=== PATIENT | female | born 1965 | race Caucasian/White ===

== ENCOUNTER 2019-12-19 12:54 | Emergency (ER) | payer MEDICAID, SELFPAY | END 2019-12-19 14:55 | disposition home or self-care (01) | LOC: ER 12-28 15:16 | PROVIDERS: Emergency Provider Family Medicine; Family Provider Internal Medicine; PCP Internal Medicine | DX: Z76.89 Persons encountering health services in other specified circumstances (principal) ==

== ENCOUNTER 2019-12-19 12:54 | Emergency (ER) | payer MEDICAID, SELFPAY ==
[2019-12-19 13:09] VITALS: BP 151/73; PULSE 73; RESP 18; TEMP 36.6; O2SAT 95; BMI 63.2
--- NOTE | 2019-12-19 13:34 | ED_ITS ---
Entered by Tena Borrego, acting as scribe for Dec 19, 2019 12:54 HPI - Extremity Problem General: Chief complaint: Extremity Injury, Lower Stated complaint: big toe pain Time Seen by Provider: 12/19/19 13:34 Source: patient Mode of arrival: ambulatory Limitations: no limitations History of Present Illness: HPI Narrative: 54 yo female presents with R ten derness. pt states this started 2 days ago. pt states this is worsened with wearing shoes or walking. pt denies any other symptoms at this time. MD Complaint: extremity pain (R foot) Onset (ago): day(s) (2 days ago) Pain Consistency: constant Location: right Quality: sharp Radiation: none Relieving factors: nothing Exacerbating factors: walking Associated symptoms: Reports no associated symptoms; Deny chest pain, fever(s) or rash Review of Systems 2 General: Reports: 10 or more systems reviewed and unremarkable except in HPI and below Const: Denies: fever, chills, body aches, fatigue, malaise or night sweats Eyes: Denies: change in vision or blurry vision ENMT: Denies: throat pain, oral sores/lesions, dental pain, nasal discharge or nasal congestion Card: Denies: chest pain, palpitations, irregular heart rhythm, edema, syncope, shortness of breath on exertion, shortness of breath when lying down or leg pain with exertion Resp: Denies: shortness of breath, productive cough, non-productive cough or wheezing GI: Denies: abdominal pain, nausea, vomiting, vomiting blood, coffee grounds in vomit, difficulty swallowing, heartburn/indigestion, diarrhea, constipation, cramping, blood in stool or black tarry stool : Denies: flank pain, painful urination, urinary frequency, urinary urgency, urinary incontinence or blood in urine Musc: Denies: neck pain, back pain, extremity pain, extremity swelling, joint pain or joint swelling Skin/Breast: Denies: rash, itching or redness Neuro: Denies: headache, numbness in extremities, weakness in extremities, changes in sensation, lack of coordination, difficulty walking, frequent falls, dizziness, vertigo or confusion Psych: Denies: anxiety, depression, loss of interest, visual hallucinations, auditory hallucinations, suicidal ideation or homicidal ideation Endo: Denies: excessive urination, excessive thirst, tired all the time or cold intolerance Bandar/Lymph: Denies: easy bruising, easy bleeding, petechiae, enlarged lymph nodes or tender lymph nodes PFSH ED PFSH: Social History Smoking and tobacco status: never smoked Physical Exam Const: COMMON NORMALS: average body habitus, oriented x3 and alert GENERAL APPEARANCE: cooperative, comfortable, well kempt and well developed NUTRITIONAL APPEARANCE: obese ORIENTATION/CONSCIOUSNESS: Yes awake, Yes oriented to person and Yes oriented to place HENMT: COMMON NORMALS: normocephalic and head/scalp atraumatic HEAD & SCAL P: normocephalic and atraumatic Lymph: LYMPHATIC: no lymphadenopathy noted Resp: COMMON NORMALS: normal respiratory effort, no retractions, no use of accessory muscles and clear to auscultation bilaterally AUSCULTATION: clear to auscultation bilaterally Cardio: COMMON NORMALS: regular rate and regular rhythm RATE: regular rate RHYTHM: regular rhythm HEART SOUNDS: no murmurs Extremity: RIGHT LOWER EXTREMITY: Yes foot & digits (Reddened erythematous area over the medial aspect of the right first MP joint semi-fluctuant no drainage no pointing) Neuro: COMMON NORMALS: oriented x3 SENSORIUM/ORIENTATION: Yes alert, Yes oriented to person and Yes oriented to place Psych: APPEARANCE: Yes well kempt Skin: COMMON NORMALS: no rashes or lesions noted and skin turgor normal GENERAL SKIN EXAM: no rashes or lesions noted and turgor normal Course ED course: Mildly elevated CRP, no evidence of bony involvement on the x-ray. We will go ahead and start her on Bactrim and hydrocodone for pain follow-up with podiatry Vital Signs: Vital signs: Vital Signs Temperature 97.9 F 12/19/19 13:09 Pulse Rate 69 12/19/19 14:54 Respiratory Rate 16 12/19/19 14:54 Blood Pressure 123/89 12/19/19 14:54 Pulse Oximetry 100 12/19/19 14:54 MDM - Extremity (Nontraumatic) Lab Data: Labs: Lab Results 12/19/19 12/19/19 Range/Units 13:47 13:47 WBC 6.7 (4.0-10.0) 10^3/ uL RBC 4.72 (4.1-5.3) 10^6/u L Hgb 10.7 L (11.5-15.3) g/dL Hct 37.5 (37.0-47.0) % MCV 79.4 L (81-99) fL MCH 22.7 L (28.0-34.0) pg MCHC 28.5 L (30.0-36.0) g/dL RDW 17.1 H (12.1-15.1) % Plt Count 247 (130-400) 10^3/c mm MPV 10.9 H (7.4-10.4) fL Neut % (Auto) 70.3 % Lymph % (Auto) 22.0 % Laporte % (Auto) 4.9 % Eos % (Auto) 2.1 % Baso % (Auto) 0.6 % Neut # (Auto) 4.7 (1.8-7.7) 10^3/u L Lymph # (Auto) 1.5 (0.8-4.8) 10^3/u L Laporte # (Auto) 0.3 (0.2-0.9) 10^3/u L Eos # (Auto) 0.1 (0.0-0.8) 10^3/u L Baso # (Auto) 0.0 (0.0-0.1) 10^3/u L Nucleated RBC % (a uto) 0 % Nucleated RBCs # 0.0 /100WBC C-Reactive Protein 9.3 H (0.0-4.9) mg/L Discharge Plan Discharge Patient Disposition: Home, Self-Care Clinical Impression: Cellulitis Condition: Stable Prescriptions: New Bactrim DS 800-160 mg tablet 1 tab PO DAILY 7 Days Qty: 14 RF: 0 Donnelly 5-325 mg tablet 1 tab PO Q6H PRN (Reason: pain) Qty: 15 RF: 0 No Action venlafaxine 75 mg tablet 75 mg PO DAILY RF: 0 cetirizine 10 mg tablet 10 mg PO DAILY RF: 0 liothyronine 5 mcg tablet 5 mcg PO BID RF: 0 aspirin 81 mg tablet,delayed release (DR/EC) 81 mg PO DAILY RF: 0 lisinopril 10 mg tablet 10 mg PO DAILY RF: 0 Synthroid 150 mcg tablet 150 mcg PO DAILY RF: 0 metoprolol tartrate 50 mg tablet 50 mg PO DAILY RF: 0 furosemide 20 mg tablet 20 mg PO DAILY RF: 0 fluticasone propionate 50 mcg/actuation spray,suspension 2 spray INTRANASAL DAILY PRN (Reason: Allergy Symptoms) RF: 0 warfarin See Rx Instructions .ROUTE .COMPLEX RF: 0 Xanax 0.25 mg Tablet 0.25 mg PO PRN RF: 0 Zantac 150 mg Tablet 150 mg PO PRN RF: 0 metformin 500 mg Tablet Extended Release 24 Hr 500 mg PO DAILY RF: 0 Discharge Orders: Discharge Order (Routine); Ordered 12/19/19 Ordered By: Jordi Chambers Referrals: Lesa Christie MD [Primary Care Provider] - Discharge Date/Time: 12/19/19 14:55 Coding Level of Care Code ED Crystalizer for Chg Fwd Exam Comprehensive The documentation recorded by the Elmo de la cruz Bridget Annette, accurately reflects the service I personally performed and the decisions made by Reyes lindsay Curtis L, DO Dec 19, 2019 12:54
--- NOTE | 2019-12-19 13:40 | XR_ITS ---
WS: [id number] XR toe RT min 2V [id number] REASON FOR EXAM: R great toe FINDINGS: Soft tissue swelling of the great toe is noted. There is no definite fractures seen and no evidence of destructive changes. XR/XR toe RT min 2V [id number] IMPRESSION: Soft tissue swelling but no destructive changes identified.
[2019-12-19 13:53] LABS: Basophils % 0.6 %; Eosinophils # 0.1 10^3/uL (0.0-0.8); Eosinophils % 2.1 %; Hematocrit 37.5 % (37.0-47.0); Hemoglobin 10.7 g/dL (11.5-15.3); Lymphocytes # 1.5 10^3/uL (0.8-4.8); Mean Corpuscular HGB Conc 28.5 g/dL (30.0-36.0); Mean Corpuscular Hemoglobin 22.7 pg (28.0-34.0); Mean Corpuscular Volume 79.4 fL (81-99); Mean Platelet Volume 10.9 fL (7.4-10.4); Monocytes # 0.3 10^3/uL (0.2-0.9); Monocytes % 4.9 %; Neutrophils # 4.7 10^3/uL (1.8-7.7); Neutrophils % 70.3 %; Nucleated Red Blood Cells % 0 %; Platelet Count 247 10^3/cmm (130-400); Red Blood Count 4.72 10^6/uL (4.1-5.3); Red Cell Distribution Width 17.1 % (12.1-15.1); White Blood Count 6.7 10^3/uL (4.0-10.0)
--- NOTE | 2019-12-19 13:59 | PC.NURSE ---
X-ray at bedside
[2019-12-19 14:29] VITALS: BP 123/89; PULSE 69; RESP 18; O2SAT 99
--- NOTE | 2019-12-19 14:33 | PC.NURSE ---
Pt states her right great toe was sore 2 days ago, worsening until this morning where it became unbearable to bear weight. Pt states she wore a bad pair of shoes yesterday that probably aggravated it . Pt denies injury to foot. Redness and pain to right great toe distal phalanx. Pt has full ROM and cap refill <3 sec.
[2019-12-19 14:34] LABS: C Reactive Protein 9.3 mg/L (0.0-4.9)
[2019-12-19 14:54] VITALS: BP 123/89; PULSE 69; RESP 16; O2SAT 100
--- NOTE | 2019-12-21 13:33 | DCPLANNER ---
food and beverage assistant manager had message to schedule a follow up appointment for patient with podiatry. food and beverage assistant manager called the ortho clinic, spoke with Pat, gave clinic patients information. food and beverage assistant manager was told that patients information would be printed and reviewed. Clinic will call watch case polisher and patient with appointment information.
--- NOTE | 2019-12-23 11:01 | DCPLANNER ---
Patient has an appointment scheduled for January at 2:[address] Rowland. Patient is aware of appointment.
--- NOTE | 2020-01-14 12:39 | DCPLANNER ---
Patient did attend appointment scheduled for 01.13.20 with ortho.
== END 2019-12-19 14:55 | disposition home or self-care (01) ==
PROVIDERS: Emergency Provider Family Medicine; Family Provider Internal Medicine; PCP Internal Medicine
DX: L03.115 Cellulitis of right lower limb (principal)
CPT/HCPCS: 36415; 73660; 85025; 86140; 99281; 99283

== ENCOUNTER 2020-09-05 14:44 | Outpatient (CLI) | payer MEDICAID, SELFPAY ==
--- NOTE | 2020-09-05 14:48 | US_ITS ---
WS: [id number] ULTRASOUND RENAL TECHNIQUE: Ultrasound examination of both kidneys. CLINICAL INFORMATION: CYSTIC LUNG COMPARISON: None. FINDINGS: Technically difficult examination due to body habitus RIGHT: Right kidney is normal in size and appearance. Echogenicity: Normal. Cortical thickness: 1.5 cm; Normal. Hydronephrosis: None. Perinephric fluid: None. Right kidney measures: 12.8 cm x 5.3 cm x 4.7 cm. LEFT: Left kidney is normal in size and appearance. Echogenicity: Normal. Cortical thickness: 1.6 cm; Normal. Hydronephrosis: None. Perinephric fluid: None. Left kidney measures: 11.0 cm x 4.8 cm x 6.7 cm. Normal visualized aorta. Bladder is decompressed. Patient recently voided. US/US renal BI* [id number] IMPRESSION: Normal renal ultrasound
== END 2020-09-05 14:45 | disposition home or self-care (01) ==
PROVIDERS: PCP Internal Medicine; Visit Provider Internal Medicine
DX: J98.4 Other disorders of lung (principal)
CPT/HCPCS: 76770

== ENCOUNTER → 2020-12-08 11:40 | Outpatient (BNVA) | payer MEDICAID, SELFPAY | PROVIDERS: PCP Internal Medicine; Visit Provider Obstetrics & Gynecology | DX: N95.0 Postmenopausal bleeding (principal); E66.01 Morbid (severe) obesity due to excess calories; Z68.44 Body mass index [BMI] 60.0-69.9, adult | CPT/HCPCS: 83001; 84146; 84443; 85610; 85730 ==

== ENCOUNTER → 2020-12-19 14:44 | Outpatient (BNVA) | payer MEDICAID, SELFPAY | PROVIDERS: PCP Internal Medicine; Visit Provider Obstetrics & Gynecology | DX: N95.0 Postmenopausal bleeding (principal); D25.1 Intramural leiomyoma of uterus; N85.2 Hypertrophy of uterus | CPT/HCPCS: 76830 ==

== ENCOUNTER → 2021-01-11 13:42 | Outpatient (BNVA) | payer MEDICAID, SELFPAY | PROVIDERS: PCP Internal Medicine; Visit Provider Obstetrics & Gynecology | DX: N95.0 Postmenopausal bleeding (principal) | CPT/HCPCS: 81025; 88305 ==

== ENCOUNTER 2021-12-12 14:23 | Outpatient (CLI) | payer MEDICAID, SELFPAY ==
--- NOTE | 2021-12-12 14:36 | US_ITS ---
WS: [id number] RENAL ULTRASOUND HISTORY: CYSTIC BULLOUS DZ OF LUNG COMPARISON: 09/05/2020 TECHNIQUE: 2-D and color Doppler imaging of the kidney submitted. Right kidney: 11.1 cm x 5.9 cm x 5.1 cm. Normal echogenicity with no hydronephrosis or mass. Left kidney: 11.5 cm x 6.8 cm x 4.5 cm. Normal echogenicity with no hydronephrosis or mass. Aorta: Normal. Urinary Bladder: Normal distention. US/US renal BI* [id number] IMPRESSION: Normal renal ultrasound.
[2021-12-13 07:57] LABS: PROTEIN, TOTAL 7.5 g/dL (6.1-8.1)
[2021-12-14 08:52] LABS: ALBUMIN 3.9 g/dL (3.8-4.8); ALPHA 1 GLOBULIN 0.4 g/dL (0.2-0.3); ALPHA 2 GLOBULIN 0.8 g/dL (0.5-0.9); BETA 1 GLOBULIN 0.6 g/dL (0.4-0.6); BETA 2 GLOBULIN 0.7 g/dL (0.2-0.5); GAMMA GLOBULIN 1.3 g/dL (0.8-1.7)
== END 2021-12-12 14:24 | disposition home or self-care (01) ==
PROVIDERS: PCP Internal Medicine; Visit Provider Internal Medicine Pulmonary Disease
DX: J98.4 Other disorders of lung (principal)
CPT/HCPCS: 36415; 76770; 84155; 84165

== ENCOUNTER 2022-07-07 22:24 | Emergency (ER) | payer MEDICAID, SELFPAY ==
[2022-07-07 22:45] VITALS: BP 179/96; PULSE 74; RESP 22; TEMP 37.7; O2SAT 93; BMI 61.5
--- NOTE | 2022-07-07 22:56 | XRR_ITS ---
PROCEDURE INFORMATION: Exam: XR Chest Exam date and time: 07/07/2022 11:14 PM Age: 56 years old Clinical indication: Cough and shortness of breath; Additional info: SOB cough TECHNIQUE: Imaging protocol: Radiologic exam of the chest. Views: 1 view. COMPARISON: CR Chest 2 views* [id number] 11/01/2019 12:43 PM FINDINGS: Lungs: Right hilar to lower lobe atelectasis versus infiltrate. Pleural spaces: Unremarkable. No pleural effusion. No pneumothorax. Heart/Mediastinum: Unremarkable. No cardiomegaly. Bones/joints: Unremarkable. XR/XR chest 1V portable [id number] IMPRESSION: Right hilar to lower lobe atelectasis versus infiltrate.
[2022-07-07 22:59] VITALS: O2SAT 95
[2022-07-07 23:19] VITALS: PULSE 78; RESP 17; O2SAT 94
[2022-07-08 01:00] VITALS: PULSE 88; RESP 17; O2SAT 95
[2022-07-08 01:11] VITALS: PULSE 88; RESP 17; O2SAT 95
[2022-07-08 01:24] LABS: SARS Covid-2 Antigen Positive (Negative)
--- NOTE | 2022-07-08 04:36 | W.ED.COVID ---
HPI - COVID General: Chief Complaint: COVID symptoms Stated Complaint: n/v Time Seen by Provider: 07/07/22 22:56 Source: patient Triage information: Has fever, cough or shortness of breath. History of Present Illness: 56-year-old female who complains of multiple symptoms. These include fever cough shortness of breath, and diarrhea with vomiting. She took a home COVID test and states that she believes it was positive, but she does not know if she read it right . MD complaint: known COVID positive Prior covid testing: yes, results known COVID 19 common symptoms: positive fever(s), chills, cough, non-productive cough, dyspnea, nasal congestion, nausea, vomiting and diarrhea COVID 19 other sytmptoms: negative chest pressure, chest pain or requiring oxygen Onset (ago): day(s) Severity: moderate Pertinent comorbid conditions: diabetes and hypertension COVID Results: SARS-CoV-2 Antigen (Rapid) Positive (Negative) H 07/08/22 00:04 Review of Systems Const: Reports: fever(s) and chills ENMT: Reports: nasal congestion Card: Denies: chest pain Resp: Reports: dyspnea and non-productive cough GI: Reports: nausea, vomiting and diarrhea PFSH ED PFSH: Medical History Accelerated essential hypertension Diabetes Hx of blood clots Hypothyroidism Lung disease Postmenopausal bleeding Presence of IVC filter 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 Performed by Dr John at [facility] in [place], [place] Surgical History H/O superior vena cava filter placement 11/30/2013- Dx: Respiratory failure, Pulmonary embolism. Performed by Dr John at [facility] in [place], [place] History of weight loss surgery Gastric Sleeve Hx of cholecystectomy Status post hysteroscopic polypectomy 08/23/19- per Dr. Nair at [facility] EMB: small fragment of proliferative type endometrium and adjacent benign endocervical type mucosa, no malignancy, complex hyperplasia, chronic endometritis, or dysplasia is identified, step sections examined Family History Father Hypertension Brother Hypertension Mother Thyroid condition Grandmother Stroke paternal Sister Diabetes Hypertension Son Thyroid condition Grandfather Heart disease paternal and maternal Denies family history of Colon cancer Ovarian cancer Clotting disorder Hyperlipidemia Breast cancer Anesthesia complication Bleeding disorder Uterine cancer Social History Smoking and tobacco status: never smoked Alcohol intake: never Current occupational status: disabled Physical Exam Const: COMMON NORMALS: no acute distress GENERAL APPEARANCE: cooperative; not ill appearing and not frail appearing HENMT: COMMON NORMALS: normocephalic, atraumatic and Normal external nose present HEAD & SCALP: normocephalic and atraumatic FACE & SINUS: normal facial exam and face symmetric NOSE: Normal external nose present Eye: COMMON NORMALS: Equal, round and reactive pupils present and EOMs intact bilaterally PUPIL: Yes Equal, round and reactive pupils present Neck/C-Spine: GENERAL: Yes trachea midline Chest: CHEST: Yes Symmetrical chest wall rise Resp: COMMON NORMALS: normal respiratory effort, No retractions, No use of accessory muscles and clear to auscultation bilaterally AUSCULTATION: clear to auscultation bilaterally Cardio: COMMON NORMALS: regular rate and regular rhythm RATE: regular rate RHYTHM: regular rhythm GI: COMMON NORMALS: Normal to inspection, nondistended, normoactive bowel sounds present Extremity: COMMON NORMALS: no pedal edema Neuro: PETRA COMA SCALE: document GCS findings Petra coma scale eye opening: Spontaneous Petra coma scale verbal response: Orientated [place] coma scale motor response: Obey commands Petra coma scale total score: 15 SENSORY EXAM: Yes extremities (intact) Psych: COMMON NORMALS: speech normal SPEECH: Yes normal speech Skin: COMMON NORMALS: no rashes or lesions noted GENERAL SKIN EXAM: no rashes or lesions noted Course Vital Signs: Vital signs: Vital Signs Temperature 99.9 F H 07/07/22 22:45 Pulse Rate 88 07/08/22 01:11 Respiratory Rate 17 07/08/22 01:11 Blood Pressure 179/96 07/07/22 22:45 Pulse Oximetry 95 07/08/22 01:11 Oxygen Delivery Me thod 07/07/22 23:19 MDM - COVID Medical Decision Making Rapid is confirmed positive here. Chest x-ray shows some atelectasis versus slight infiltrate. Given her comorbid conditions, she will be placed on antivirals. She knows to return for any worsening symptoms. Lab Data Radiology Impressions Chest X-Ray 07/07/22 22:56 IMPRESSION: Right hilar to lower lobe atelectasis versus infiltrate. Laboratory Results SARS-CoV-2 Ag (Rapid) Positive (Negative) H 07/08/22 00:04 SARS-CoV-2 Antigen (Rapid) Positive (Negative) H 07/08/22 00:04 Discharge Plan Discharge Patient Disposition: Home Clinical Impression: COVID-19 Condition: Stable Prescriptions: New Paxlovid (EUA) 150 mg x 2- 100 mg tablet See Rx Instructions .ROUTE .COMPLEX Qty: 30 0RF Rx Instructions: take TWO 150 mg tablets of nirmatrelvir with ONE 100 mg tablet of ritonavir twice daily for 5 days No Action atorvastatin 10 mg tablet 10 mg PO DAILY Victoza 3-Chaz 0.6 mg/0.1 mL (18 mg/3 mL) pen injector 1.8 mg SUBCUT Q24H azithromycin [Zithromax Z-Chaz] 250 mg tablet See Rx Instructions PO .COMPLEX Qty: 6 0RF Rx Instructions: For 250 mg dose pack: take 500 mg today (day 1), then 250 mg for 4 days (days 2-5) PO venlafaxine 75 mg tablet 75 mg PO DAILY cetirizine 10 mg tablet 10 mg PO DAILY liothyronine 5 mcg tablet 5 mcg PO BID aspirin 81 mg tablet,delayed release (DR/EC) 81 mg PO DAILY lisinopril 10 mg tablet 10 mg PO DAILY Synthroid 150 mcg tablet 150 mcg PO DAILY metoprolol tartrate 50 mg tablet 50 mg PO DAILY furosemide 20 mg tablet 20 mg PO DAILY fluticasone propionate 50 mcg/actuation spray,suspension 2 spray INTRANASAL DAILY PRN (Reason: Allergy Symptoms) warfarin See Rx Instructions .ROUTE .COMPLEX Rx Instructions: 6-1/2 mg po daily Xanax 0.25 mg Tablet 0.25 mg PO PRN Zantac 150 mg Tablet 150 mg PO PRN Discharge Orders: Discharge ED (Routine); Ordered 07/08/22 Ordered By: Neil Cason Referrals: Lesa Christie MD [Primary Care Provider] - 1-3 days Discharge Diet: Advance as tolerated Discharge Activity: Increase activity as tolerated Patient Instructions: COVID-19 (Coronavirus Disease 2019) (ED) Activity Restrictions/Additional Instructions: Medications as instructed. Return for worsening shortness of breath despite treatment, vomiting liquids or medications, any other concerning symptoms. Stop your atorvastatin while on the antiviral medication. You should have your INR checked 2 days after starting the drug. Coding Level of Care Code ED Matrix Plater for Luis F Britt
== END 2022-07-08 01:12 | disposition home or self-care (01) ==
PROVIDERS: Emergency Provider Emergency Medicine; PCP Internal Medicine
DX: U07.1 COVID-19 (principal); Z79.82 Long term (current) use of aspirin; Z79.01 Long term (current) use of anticoagulants; I10 Essential (primary) hypertension; E11.9 Type 2 diabetes mellitus without complications
CPT/HCPCS: 71045; 87426; 99283

== ENCOUNTER 2022-11-20 09:47 | Outpatient (CLI) | payer MEDICAID, SELFPAY ==
--- NOTE | 2022-11-20 09:57 | US_ITS ---
WS: [id number] RENAL ULTRASOUND HISTORY: CYSTIC-BULLOUS DZ OF LUNG COMPARISON: 12/12/2021 TECHNIQUE: 2-D and color Doppler imaging of the kidney submitted. Right kidney: 11.6 cm x 5.0 cm x 4.8 cm. Normal echogenicity with no hydronephrosis or mass. Left kidney: 11.9 cm x 4.5 cm x 5.1 cm. Normal echogenicity with no hydronephrosis or mass. Aorta: Normal. Urinary Bladder: Normal distention. US/US renal BI* [id number] IMPRESSION: Normal renal ultrasound. Similar size and appearance of the kidneys as compared to 12/12/2021.
== END 2022-11-20 09:48 | disposition home or self-care (01) ==
LOC: RAD 09:50
PROVIDERS: PCP Internal Medicine; Visit Provider Internal Medicine Pulmonary Disease
DX: J84.9 Interstitial pulmonary disease, unspecified (principal)
CPT/HCPCS: 76770

== ENCOUNTER 2023-10-03 13:27 | Emergency (ER) | payer MEDICAID, SELFPAY ==
[2023-10-03 13:41] VITALS: BP 157/84; PULSE 57; RESP 17; TEMP 36.6; O2SAT 95; BMI 59.9
--- NOTE | 2023-10-03 13:56 | W.ED.ANIMALB ---
HPI - Animal Bite General: Chief Complaint: Animal Bite Stated Complaint: animal bite/rabies shot Time Seen by Provider: 10/03/23 13:52 Source: patient Mode of arrival: ambulatory Limitations: no limitations History of Present Illness: 57-year-old female presents to the ER today for follow-up on cat bite. Patient was bit by a cat on Friday on her left middle finger. Patient reports she was seen at that time and started on Augmentin. She picked up the medication Friday and has taken about 4 doses of it. She reports the throbbing has subsided but there is still redness and tenderness to light palpation. She is also been soaking in Epsom salts. They did give her a tetanus shot at the time also. They did not do rabies vaccines however the health department has called her and told her she should follow-up to discuss it. Patient reports this cat was a stray cat but was not acting odd when it bit her. She reports she had picked it up and was trying to rub his eyes and clean his eyes when it better so the attack was not unprovoked. She reports she did not capture the cat however has seen it since and it is acting normally. 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 Performed by Dr John at [facility] in [place], [place]. Postmenopausal bleeding Diabetes Lung disease Hypothyroidism Accelerated essential hypertension Hx of blood clots Presence of IVC filter Surgical History H/O superior vena cava filter placement 11/30/2013- Dx: Respiratory failure, Pulmonary embolism. Performed by Dr John at [facility] in [place], [place]. Status post hysteroscopic polypectomy 08/23/19- per Dr. Nair at [facility] EMB: small fragment of proliferative type endometrium and adjacent benign endocervical type mucosa, no malignancy, complex hyperplasia, chronic endometritis, or dysplasia is identified, step sections examined Hx of cholecystectomy History of weight loss surgery Gastric Sleeve Family History Father Hypertension Brother Hypertension Mother Thyroid disease Grandmother Stroke paternal Sister Diabetes Hypertension Son Thyroid disease Grandfather Heart disease paternal and maternal Denies family history of Colon cancer Ovarian cancer Clotting disorder Hyperlipidemia Breast cancer Anesthesia complication Bleeding disorder Uterine cancer Social History Smoking and tobacco/nicotine status: never used tobacco/nicotine Alcohol intake: never Substance/Drug Use: never Current occupational status: disabled Physical Exam Const: COMMON NORMALS: no acute distress, average body habitus, patient oriented x3, no limitations, healthy appearing, alert and well nourished Extremity: NARRATIVE EXTREMITY EXAM: mild swelling and tenderness with movement of the L middle finger Neuro: COMMON NORMALS: patient oriented x3 SENSORIUM/ORIENTATION: Yes alert Skin: NARRATIVE SKIN EXAM: mild/mod erythema of the distal tip of the L middle finger. Scabbed puncture wound to palmar surface of the distal tip. No active drainage and per patient redness has improved. Course ED course: Pt presents to the ER for a f/u on cat bite that occurred on Friday night. Pt started Augmentin on Friday and does report improvement. She received a Tdap at that time. She has been soaking it in epsom salts. She was told to discuss rabies vaccines. Pt does not feel this cat was rabid despite it being a stray. This was not an unprovoked attack. She did not capture the cat but has seen it since and it has been acting normally. Vital Signs: Vital signs: Vital Signs Temperature 97.8 F 10/03/23 13:41 Pulse Rate 57 L 10/03/23 13:41 Respiratory Rate 17 10/03/23 13:41 Blood Pressure 157/84 10/03/23 13:41 Pulse Oximetry 95 10/03/23 13:41 Oxygen Delivery Me thod Room Air 10/03/23 13:41 MDM - Animal Bite Medical Decision Making Pt has improved and has only been on the antibiotics for less than 24 hours. Continue antibiotics and soaking in epsom salts. Discussed with patient that I do not recommend the rabies vaccines at this time. She is not at a high risk given this specific situation. She would like to also hold on the vaccines at this time. If anything changes she will follow up. She has an appt with her physician first of next week. Return to the ER with any new or worsening symptoms. No radiology studies performed this visit Critical Care Time Critical Care Time: Critical Care Time: No Discharge Plan Discharge Patient Disposition: Home Clinical Impression: Cat bite Qualifiers: Encounter type: subsequent encounter Qualified Code(s): W55.01XD - Bitten by cat, subsequent encounter Condition: Stable Prescriptions: No Action atorvastatin 10 mg tablet 10 mg PO DAILY Victoza 3-Cahz 0.6 mg/0.1 mL (18 mg/3 mL) pen injector 1.8 mg SUBCUT Q24H azithromycin [Zithromax Z-Chaz] 250 mg tablet See Rx Instructions PO .COMPLEX Qty: 6 0RF Rx Instructions: For 250 mg dose pack: take 500 mg today (day 1), then 250 mg for 4 days (days 2-5) PO venlafaxine 75 mg tablet 75 mg PO DAILY cetirizine 10 mg tablet 10 mg PO DAILY liothyronine 5 mcg tablet 5 mcg PO BID aspirin 81 mg tablet,delayed release (DR/EC) 81 mg PO DAILY lisinopril 10 mg tablet 10 mg PO DAILY Synthroid 150 mcg tablet 150 mcg PO DAILY metoprolol tartrate 50 mg tablet 50 mg PO DAILY furosemide 20 mg tablet 20 mg PO DAILY fluticasone propionate 50 mcg/actuation spray,suspension 2 spray INTRANASAL DAILY PRN (Reason: Allergy Symptoms) warfarin See Rx Instructions .ROUTE .COMPLEX Rx Instructions: 6-1/2 mg po daily Xanax 0.25 mg Tablet 0.25 mg PO PRN Zantac 150 mg Tablet 150 mg PO PRN Paxlovid 150 mg x 2- 100 mg tablet See Rx Instructions .ROUTE .COMPLEX Qty: 30 0RF Rx Instructions: take TWO 150 mg tablets of nirmatrelvir with ONE 100 mg tablet of ritonavir twice daily for 5 days Discharge Orders: Discharge ED (Routine); Ordered 10/03/23 Ordered By: Milagros Roach Referrals: Lesa Christie MD [Primary Care Provider] - Discharge Diet: Usual diet Discharge Activity: Increase activity as tolerated Patient Instructions: Opioid Safety, Pain Management Activity Restrictions/Additional Instructions: Finish Augmentin. Continue Epsom salt soaks. Follow-up with PCP as scheduled visit next week. Return to the ER with new or worsening symptoms. Coding Level of Care Code ED Legal Writing Professor for Luis F Britt
[2023-10-03 14:25] VITALS: BP 127/72; PULSE 77; RESP 18; O2SAT 93
== END 2023-10-03 14:29 | disposition home or self-care (01) ==
PROVIDERS: Emergency Provider Physician Assistant; PCP Internal Medicine
DX: S61.253A Open bite of left middle finger without damage to nail, initial encounter (principal); W55.01XA Bitten by cat, initial encounter; Z79.82 Long term (current) use of aspirin; Z79.01 Long term (current) use of anticoagulants; E11.9 Type 2 diabetes mellitus without complications; I10 Essential (primary) hypertension
CPT/HCPCS: 99282

== ENCOUNTER 2024-02-29 07:03 | Emergency (ER) | payer MEDICAID, SELFPAY ==
[2024-02-29 07:14] VITALS: BP 185/95; PULSE 58; TEMP 36.7; O2SAT 95; BMI 60.0
--- NOTE | 2024-02-29 07:24 | ED_ITS ---
HPI - Ear Problem General: Chief complaint: Ear Stated complaint: rt ear pain Time Seen by Provider: 02/29/24 07:10 Source: patient Mode of arrival: ambulatory Limitations: no limitations History of Present Illness: 58-year-old female states she been havin g right ear pain over the last 2 days. States been a throbbing pain she also felt like she had some sinus pressure as well. She denies any fevers denies any drainage. She rates the pain a 6 out of 10 currently denies any hearing issues. 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 Performed by Dr John at [facility] in [place], [place]. Postmenopausal bleeding Diabetes Lung disease Hypothyroidism Accelerated essential hypertension Hx of blood clots Presence of IVC filter Surgical History H/O superior vena cava filter placement 11/30/2013- Dx: Respiratory failure, Pulmonary embolism. Performed by Dr John at [facility] in [place], [place]. Status post hysteroscopic polypectomy 08/23/19- per Dr. Nair at [facility] EMB: small fragment of proliferative type endometrium and adjacent benign endocervical type mucosa, no malignancy, complex hyperplasia, chronic endometritis, or dysplasia is identified, step sections examined Hx of cholecystectomy History of weight loss surgery Gastric Sleeve Family History Father Hypertension Brother Hypertension Mother Thyroid disease Grandmother Stroke paternal Sister Diabetes Hypertension Son Thyroid disease Grandfather Heart disease paternal and maternal Denies family history of Colon cancer Ovarian cancer Clotting disorder Hyperlipidemia Breast cancer Anesthesia complication Bleeding disorder Uterine cancer Social History Smoking and tobacco/nicotine status: never used tobacco/nicotine Alcohol intake: never Substance/Drug Use: never Current occupational status: disabled Physical Exam Const: COMMON NORMALS: no acute distress, patient oriented x3 and healthy appearing HENMT: COMMON NORMALS: normocephalic, atraumatic, external ears normal and EAC's normal HEAD & SCALP: normocephalic and atraumatic EXTERNAL EAR: Yes external ears normal EXTERNAL AUDITORY CANAL: EAC's normal TYMPANIC MEMBRANE: TM normal on the left and TM abnormal TM laterality: right Details: erythematous Eye: COMMON NORMALS: conjunctivae normal CONJUNCTIVA: Yes conjunctivae normal Neck/C-Spine: COMMON NORMALS: supple Chest: COMMONS NORMALS: normal inspection of the chest Resp: COMMON NORMALS: normal respiratory effort Cardio: COMMON NORMALS: regular rate, regular rhythm and No murmurs present (Cardio) RATE: regular rate RHYTHM: regular rhythm Extremity: COMMON NORMALS: normal to inspection and full ROM Neuro: COMMON NORMALS: patient oriented x3, moves all extremities and no focal motor deficits Psych: COMMON NORMALS: mental status grossly normal, Normal thought process present and cooperative THOUGHT PROCESS: Normal thought process present Skin: COMMON NORMALS: no rashes or lesions noted and no wounds GENERAL SKIN EXAM: no rashes or lesions noted Course Vital Signs: Vital signs: Vital Signs Temperature 98.1 F 02/29/24 07:14 Pulse Rate 58 L 02/29/24 07:14 Blood Pressure 185/95 02/29/24 07:14 Pulse Oximetry 95 02/29/24 07:14 Oxygen Delivery Me thod Room Air 02/29/24 07:14 MDM - Ear Medical Decision Making Patient presents here with right ear pain has an otitis media canals normal no signs of externa she has no bleeding at this time we will start her on Keflex she is stable for discharge she is follow-up with PCP return if worsening. Medical Records I reviewed the patient's medical records. No radiology studies performed this visit Discharge Plan Discharge Patient Disposition: Home Clinical Impression: Otitis media Qualifiers: Chronicity: acute Laterality: right Recurrence: non-recurrent Spontaneous tympanic membrane rupture: without spontaneous rupture Condition: Stable Prescriptions: New cephalexin 500 mg capsule 500 mg PO TID 7 Days Qty: 21 0RF No Action atorvastatin 10 mg tablet 10 mg PO DAILY Victoza 3-Chaz 0.6 mg/0.1 mL (18 mg/3 mL) pen injector 1.8 mg SUBCUT Q24H azithromycin [Zithromax Z-Chaz] 250 mg tablet See Rx Instructions PO .COMPLEX Qty: 6 0RF Rx Instructions: For 250 mg dose pack: take 500 mg today (day 1), then 250 mg for 4 days (days 2-5) PO venlafaxine 75 mg tablet 75 mg PO DAILY cetirizine 10 mg tablet 10 mg PO DAILY liothyronine 5 mcg tablet 5 mcg PO BID aspirin 81 mg tablet,delayed release (DR/EC) 81 mg PO DAILY lisinopril 10 mg tablet 10 mg PO DAILY Synthroid 150 mcg tablet 150 mcg PO DAILY metoprolol tartrate 50 mg tablet 50 mg PO DAILY furosemide 20 mg tablet 20 mg PO DAILY fluticasone propionate 50 mcg/actuation spray,suspension 2 spray INTRANASAL DAILY PRN (Reason: Allergy Symptoms) warfarin See Rx Instructions .ROUTE .COMPLEX Rx Instructions: 6-1/2 mg po daily Xanax 0.25 mg Tablet 0.25 mg PO PRN Zantac 150 mg Tablet 150 mg PO PRN Paxlovid 150 mg x 2- 100 mg tablet See Rx Instructions .ROUTE .COMPLEX Qty: 30 0RF Rx Instructions: take TWO 150 mg tablets of nirmatrelvir with ONE 100 mg tablet of ritonavir twice daily for 5 days Discharge Orders: Discharge ED (Routine); Ordered 02/29/24 Ordered By: Twila Phillips Referrals: Lesa Christie MD [Primary Care Provider] - 4-7 days Discharge Diet: Advance as tolerated Discharge Activity: Resume usual activity Patient Instructions: Ear Infection (ED) Coding Level of Care Code ED [employer] for [employer]
[2024-02-29] MEDS: cephALEXin 500 mg Capsule PO (07:29)
[2024-02-29] MEDS: naproxen 500 mg Tablet PO (07:30)
[2024-02-29 07:31] VITALS: BP 182/102; PULSE 55; RESP 18; O2SAT 96
== END 2024-02-29 07:41 | disposition home or self-care (01) ==
PROVIDERS: Emergency Provider Emergency Medicine; PCP Internal Medicine
DX: H66.91 Otitis media, unspecified, right ear (principal); Z79.82 Long term (current) use of aspirin; Z79.01 Long term (current) use of anticoagulants; E11.9 Type 2 diabetes mellitus without complications
CPT/HCPCS: 99283

== ENCOUNTER → 2025-01-11 09:38 | Outpatient (BNVA) | payer MEDICAID, SELFPAY | PROVIDERS: PCP Internal Medicine; Visit Provider Nurse Practitioner Family | DX: L23.9 Allergic contact dermatitis, unspecified cause (principal); D23.61 Other benign neoplasm of skin of right upper limb, including shoulder; D23.5 Other benign neoplasm of skin of trunk; D18.01 Hemangioma of skin and subcutaneous tissue; L91.0 Hypertrophic scar; Z08 Encounter for follow-up examination after completed treatment for malignant neoplasm; Z85.3 Personal history of malignant neoplasm of breast; L82.0 Inflamed seborrheic keratosis; Z78.9 Other specified health status; L57.0 Actinic keratosis | CPT/HCPCS: 17000; 17110; 99204 ==

== ENCOUNTER 2025-01-19 10:05 | Outpatient (CLI) | payer MEDICAID, SELFPAY ==
--- NOTE | 2025-01-19 10:11 | US_ITS ---
WS: [id number] ULTRASOUND RENAL TECHNIQUE: Ultrasound examination of both kidneys. CLINICAL INFORMATION: CYSTIC BULLOUS DZ OF LUNG/ILD/HCC COMPARISON: 2022 FINDINGS: RIGHT: Right kidney is normal in size and appearance. Echogenicity: Normal. Cortical thickness: 1.4 cm; Normal. Hydronephrosis: None. Perinephric fluid: None. Right kidney measures: 10.6 cm x 5.6 cm x 4.8 cm. LEFT: Left kidney is normal in size and appearance. Echogenicity: Normal. Cortical thickness: 1.6 cm; Normal. Hydronephrosis: None. Perinephric fluid: None. Left kidney measures: 10.4 cm x 5.6 cm x 6.0 cm. Normal visualized aorta. US/US renal BI* [id number] IMPRESSION: Normal renal ultrasound
== END 2025-01-19 10:06 | disposition home or self-care (01) ==
PROVIDERS: PCP Internal Medicine; Visit Provider Internal Medicine Pulmonary Disease
DX: J98.4 Other disorders of lung (principal); J84.9 Interstitial pulmonary disease, unspecified
CPT/HCPCS: 76770

== ENCOUNTER → 2025-02-23 13:24 | Outpatient (BNVA) | payer MEDICAID, SELFPAY | PROVIDERS: PCP Internal Medicine; Visit Provider Nurse Practitioner Family | DX: D23.61 Other benign neoplasm of skin of right upper limb, including shoulder (principal); D23.5 Other benign neoplasm of skin of trunk; D18.01 Hemangioma of skin and subcutaneous tissue; L91.0 Hypertrophic scar; L57.8 Other skin changes due to chronic exposure to nonionizing radiation; L81.4 Other melanin hyperpigmentation; Z08 Encounter for follow-up examination after completed treatment for malignant neoplasm; Z85.3 Personal history of malignant neoplasm of breast; L30.9 Dermatitis, unspecified | CPT/HCPCS: 11104; 99213 ==

== ENCOUNTER → 2025-03-04 10:43 | Outpatient (BNVA) | payer MEDICAID, SELFPAY | PROVIDERS: PCP Internal Medicine; Visit Provider Nurse Practitioner Family | DX: L92.0 Granuloma annulare (principal); L91.0 Hypertrophic scar; L82.0 Inflamed seborrheic keratosis; L29.89 Other pruritus; R20.9 Unspecified disturbances of skin sensation; R20.8 Other disturbances of skin sensation | CPT/HCPCS: 17110; 99214 ==

== ENCOUNTER → 2025-06-07 10:47 | Outpatient (BNVA) | payer MEDICAID, SELFPAY | PROVIDERS: PCP Internal Medicine; Visit Provider Nurse Practitioner Family | DX: L92.0 Granuloma annulare (principal); L81.0 Postinflammatory hyperpigmentation; D23.61 Other benign neoplasm of skin of right upper limb, including shoulder; D23.5 Other benign neoplasm of skin of trunk; D18.01 Hemangioma of skin and subcutaneous tissue; L82.0 Inflamed seborrheic keratosis; R20.8 Other disturbances of skin sensation; L53.8 Other specified erythematous conditions; L91.0 Hypertrophic scar | CPT/HCPCS: 11900; 17110; 99213 ==

== ENCOUNTER → 2025-07-07 14:33 | Outpatient (BNVA) | payer MEDICAID, SELFPAY | PROVIDERS: PCP Internal Medicine; Visit Provider Nurse Practitioner Family | DX: D18.01 Hemangioma of skin and subcutaneous tissue (principal); L57.8 Other skin changes due to chronic exposure to nonionizing radiation; L91.0 Hypertrophic scar | CPT/HCPCS: 11900; 99213 ==

== ENCOUNTER → 2025-08-19 14:32 | Outpatient (BNVA) | payer MEDICAID, SELFPAY | PROVIDERS: PCP Internal Medicine; Visit Provider Nurse Practitioner Family | DX: L91.0 Hypertrophic scar (principal); L57.8 Other skin changes due to chronic exposure to nonionizing radiation | CPT/HCPCS: 99213 ==